=== PATIENT | male | born 1950 | race Caucasian/White ===

== ENCOUNTER → 2016-10-07 | Day surgery (SDC) | payer OTHER ==
[2016-09-20 07:49] VITALS: Ht 182.9 cm; Wt 81.8 kg
[~2016-10-07] VITALS: Ht 182.9 cm; Wt 81.8 kg
[~2016-10-07] MED LIST: GARL1CAP6 PO; LIDOCAINE HCL 2% 2 ML VIAL (20MG/ML) ONE; MIDAZOLAM HCL 1 MG/ML 2ML VIAL ONE; MULT-1008 PO; MULT-506 PO; ONDANSETRON INJ 2 MG/ML 2 ML VIAL ONE; PHENYLEPHRINE 100MCG/ML 5ML SYR ONE; PROPOFOL IV EMULSION 10 MG/ML 20 ML VIAL IV ONE; SODIUM CHLORIDE 0.9% 500ML 500 ML IV ONE
--- NOTE | 2016-10-07 13:03 | Endo History and Physical ---
History & Physical Date of Service: Oct 07, 2016. Chief Complaint: SCREENING Referring Physician: DR QUIROS History of Present Illness 66 yo CM who presents for screening colonoscopy. Past Surgical History Hx Cardiac Surgery: No Hx Internal Defibrillator: No Hx Pacemaker: No Hx Abdominal Surgery: Yes (APPY) Hx of Implantable Prosthesis: No Hx Post-Op Nausea and Vomiting: No Hx Cancer Surgery: Yes (PROSTATECTOMY) Hx Thoracic Surgery: No Hx Orthopedic: Yes (LT TKA, LT ACHILLES TENDON REPAIR, MULTIPLE LT KNEE SURGERIES, DISCECTOMY) Hx Urinary Tract Surgery: No Family History Esophogeal CA Social History Smoking Status: Never Smoker Hx Substance Use: No Hx Alcohol Use: Yes (OCCASIONAL) Allergies Coded Allergies: No Known Allergies (Verified , 10/07/16) Current Medications Reported Home Medications Medications Dose Route/Sig Max Daily Dose Days Date Category Macuvite Eye Care (Multiple Vitamins W/ Minerals) 1 Tab Tab 1 Tab PO DAILY 09/20/16 Reported Garlic 10 Mg Cap 1 Tab PO DAILY 09/20/16 Reported Multivitamin (Multivitamins) Tab 1 Tab PO DAILY 05/31/13 Reported Vital Signs Weight (Kilograms): 81.82 Height (Feet): 6 Height (Inches): 0 Date Time Temp Pulse Resp B/P Pulse Ox O2 Delivery O2 Flow Rate FiO2 10/07/16 12:29 36.5 66 20 136/79 97 Room Air Physical Exam General Appearance: WD/WN, no apparent distress Respiratory/Chest: Auscultation: breath sounds normal Cardiovascular: Heart Auscultation: RRR Abdomen: Bowel Sounds: normal Inspection & Palpation: soft, non-distended, no tenderness, guarding & rebound Assessment and Plan Assessment: 66 yo CM who presents for screening colonoscopy. Plan: Proceed with colonoscopy.
--- NOTE | 2016-10-07 13:25 | Discharge Instructions ---
Endoscopy Patient Instructions Date / Procedure(s) Performed Oct 07, 2016. Colonoscopy Allergy Information Coded Allergies: No Known Allergies (Verified , 10/07/16) Discharge Date / Findings Oct 07, 2016. Rectal polyp Internal hemorrhoids Medication Instructions OK to resume all medications today as prescribed Reported Home Medications Medications Dose Route/Sig Max Daily Dose Days Date Category Macuvite Eye Care (Multiple Vitamins W/ Minerals) 1 Tab Tab 1 Tab PO DAILY 09/20/16 Reported Garlic 10 Mg Cap 1 Tab PO DAILY 09/20/16 Reported Multivitamin (Multivitamins) Tab 1 Tab PO DAILY 05/31/13 Reported Provider Instructions Activity Restrictions - No exercising or heavy lifting for 24 hours. - Do not drink alcohol the day of the procedure. - Do not drive a car or operate machinery until the day after the procedure. - Do not make any important decisions or sign important papers in 24 hours after the procedure. Following Day: - Return to full activity which may include returning to work/school. Diet Start your diet with liquids and light foods (jello, soup, juice, toast). Then eat your usual diet if not nauseated. Treatment For Common After Affects For mild abdominal pain, bloating, or excessive gas: - Rest - Eat lightly - Lie on right side Follow-Up Information Follow-up with DR QUIROS as scheduled Anesthesia Information What You Should Know You have had a procedure that required some medicine to reduce anxiety and discomfort. This treatment is called moderate sedation. After receiving the treatment, you may be sleepy, but you will be able to breathe on your own. The effects of the treatment may last for several hours. Follow these instructions along with Activity/Diet recommendations noted above: * Do NOT do anything where dizziness or clumsiness would be dangerous. * Rest quietly at home today, then you can be up and about tomorrow. * Have a responsible person stay with you the rest of today. * You may have had an I.V. today. If so, you may take the dressing off later today. Recommendations Call your doctor if: * Trouble breathing * Continuous vomiting for more than 24 hours * Temperature above 101 degrees * Severe abdominal pain or bloating * Pain not relieved by pain medicine ordered * There is increased drainage or redness from any incision * A large amount of rectal bleeding greater than 2-3 tablespoons. (If you had a polyp/s removed or have hemorrhoids, a small amount of blood - from the rectum is to be expected.) * You have any unanswered questions or concerns. IN THE EVENT OF A SERIOUS EMERGENCY, GO TO THE NEAREST EMERGENCY ROOM Your discharge instructions were prepared by provider Dwayne Gomes. Patient Instructions Signature Page Joesph Blackwood Patient (or Guardian) Signature/Date: I have read and understand the instructions given to me by my caregivers. Caregiver/RN/Doctor Signature/Date: The above-named patient and/or guardian has received patient instructions on this date. + Original Patient Signature Page (only) stays with chart. Please make copy for patient.
--- NOTE | 2016-10-07 13:32 | GI REPORT ---
Procedure Date: 10/07/2016 12:54 PM Procedure: Colonoscopy Indications: Screening for colorectal malignant neoplasm Medicines: Monitored Anesthesia Care Complications: No immediate complications. Estimated Blood Loss: Estimated blood loss: none. Procedure: Pre-Anesthesia Assessment: - Prior to the procedure, a History and Physical was performed, and patient medications and allergies were reviewed. The patient's tolerance of previous anesthesia was also reviewed. The risks and benefits of the procedure and the sedation options and risks were discussed with the patient. All questions were answered, and informed consent was obtained. Prior Anticoagulants: The patient has taken no previous anticoagulant or antiplatelet agents. ASA Grade Assessment: II - A patient with mild systemic disease. After reviewing the risks and benefits, the patient was deemed in satisfactory condition to undergo the procedure. After I obtained informed consent, the scope was passed under direct vision. Throughout the procedure, the patient's blood pressure, pulse, and oxygen saturations were monitored continuously. The scope was introduced through the anus and advanced to the terminal ileum. The colonoscopy was performed without difficulty. The patient tolerated the procedure well. The quality of the bowel preparation was good. The terminal ileum, ileocecal valve, appendiceal orifice, and rectum were photographed. Findings: A 7 mm polyp was found in the rectum. The polyp was flat. The polyp was removed with a hot snare. Resection and retrieval were complete. Non-bleeding internal hemorrhoids were found during retroflexion. The hemorrhoids were small. Impression: - One 7 mm polyp in the rectum, removed with a hot snare. Resected and retrieved. - Non-bleeding internal hemorrhoids. Recommendation: - Resume previous diet. - Continue present medications. - Repeat colonoscopy for surveillance based on pathology results. - Return to primary care physician as previously scheduled. Dwayne Gomes DO 10/07/2016 1:31:49 PM This report has been signed electronically. Note Initiated On: 10/07/2016 12:54 PM
--- NOTE | 2016-10-07 13:33 | Anesthesiology Progress Note ---
Anesthesia Post Op Note Date & Time Oct 07, 2016 at 13:33 Vital Signs Pain Intensity: 0 Vital Signs Past 12 Hours Date Time Temp Pulse Resp B/P Pulse Ox O2 Delivery O2 Flow Rate FiO2 10/07/16 12:29 36.5 66 20 136/79 97 Room Air Notes Mental Status: alert / awake / arousable, participated in evaluation Pt Amnestic to Procedure: Yes Nausea / Vomiting: adequately controlled Pain: adequately controlled Airway Patency, RR, SpO2: stable & adequate BP & HR: stable & adequate Hydration State: stable & adequate Anesthetic Complications: no major complications apparent
[2016-10-07 14:00] VITALS: BP 111/71; PULSE 64; O2SAT 95
== END | disposition home or self-care (01) ==
LOC: C.GI 12:04
PROVIDERS: ATTEND Internal Medicine
DX: Z12.11 Encounter for screening for malignant neoplasm of colon (principal); K62.1 Rectal polyp; K64.8 Other hemorrhoids; Z98.890 Other specified postprocedural states; Z96.652 Presence of left artificial knee joint; Z80.0 Family history of malignant neoplasm of digestive organs

== ENCOUNTER 2020-08-25 06:41 | Observation (INO) ==
--- NOTE | 2020-08-25 07:26 | Emergency Department Note ---
History of Present Illness General Chief complaint: Illness Stated complaint: COVID,PNEUMONIA Time Seen by Provider: 08/25/20 07:07 History of Present Illness Maximum Pain Intensity: 4 This is a 69-year-old male presenting to the emergency department for evaluation of continued illness and worsening weakness over the past few days. The patient did test positive for COVID-19 08/21/2020, 4 days ago. The patient was in the ER that day and had blood work and chest x-ray performed. X-ray did show small right lower lobe pneumonia. At his previous visit the patient was on day 3 of Zithromax that was prescribed by his PCP. He did complete the Zithromax and did not feel any better. He followed up with his primary care physician the next day, and was started on doxycycline and clarithromycin. The patient was also given ivermectin. The patient has had a persistent cough at home. He is taking Tylenol for intermittent fever. The patient is fatigued and feels worse than he did a few days ago. He rates his overall discomfort a 4/10. Home Medications Medication Instructions Recorded Confirmed Type multivitamin 1 tab PO QAM #0 tab 05/31/13 08/25/20 History ascorbic acid (vitamin C) [Vitamin 500 mg PO QAM 08/21/20 08/25/20 History C] atorvastatin 10 mg PO HS 08/21/20 08/25/20 History cholecalciferol (vitamin D3) 25 mcg PO QAM 08/21/20 08/25/20 History [Vitamin D3] zinc sulfate 220 mg PO QAM 08/21/20 08/25/20 History acetaminophen [Tylenol] 0 mg PO QID PRN 08/25/20 08/25/20 History doxycycline monohydrate 100 mg PO BID 08/25/20 08/25/20 History ivermectin 21 mg PO UD 08/25/20 08/25/20 History Allergies Allergy/AdvReac Type Severity Reaction Status Date / Time No Known Allergies Allergy Verified 08/21/20 15:03 Past Med/Surg History Medical History (Updated 08/25/20 @ 09:24 by Joesph Lemons PA-C) COVID-19 Positive test 08/21/2020 Surgical History (Updated 08/25/20 @ 07:25 by Joesph Lemons PA-C) No significant past surgical history Social History Smoking Status: Never smoker Second Hand Exposure: No; Do You Dip or Chew Tobacco: No; Tobacco Cessation Education Requested by Patient: No Hx Alcohol Use: No Hx Substance Use: No Preferred Language: Iranian Communication Ability: Effective Software 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: No Beliefs That Will Affect Care: None Current Living Situation: Spouse Other Information That Helps Us Care for You: No Feels Safe at Home: Yes Safety Concerns: Feels Safe At This Time Assistive Devices: None Review of Systems A total of 10 systems reviewed and were otherwise negative Physical Exam Vital Signs Vital Signs - 24 hr 08/25/20 06:56 08/25/20 07:00 08/25/20 07:30 Temperature 36.5 C Temperature Source Oral Pulse Rate 66 70 78 Pulse Rate from SpO2 Sensor 69 75 Respiratory Rate 24 14 18 Respiratory Effort / Characteristics Non-Labored Respiratory Depth Normal Blood Pressure 116/75 107/72 109/74 Blood Pressure Mean 88 82 82 Pulse Oximetry 95 92 94 Oxygen Delivery Method Room Air Sepsis Recent Fever Within 48 Hours No Sepsis New/Unexplained Change in Mental Status No Sepsis Action Taken by Nursing No Action Required 08/25/20 08:00 08/25/20 08:04 08/25/20 08:30 Temperature Temperature Source Pulse Rate 58 L Pulse Rate from SpO2 Sensor 66 59 L Respiratory Rate 16 14 Respiratory Effort / Characteristics Respiratory Depth Blood Pressure 107/69 111/64 Blood Pressure Mean 74 71 Pulse Oximetry 94 94 93 Oxygen Delivery Method Room Air Sepsis Recent Fever Within 48 Hours Sepsis New/Unexplained Change in Mental Status Sepsis Action Taken by Nursing 08/25/20 09:00 08/25/20 09:30 08/25/20 10:00 Temperature Temperature Source Pulse Rate 70 58 L 58 L Pulse Rate from SpO2 Sensor 68 58 L 58 L Respiratory Rate 17 17 20 Respiratory Effort / Characteristics Respiratory Depth Blood Pressure 108/72 118/75 109/72 Blood Pressure Mean 91 86 76 Pulse Oximetry 95 95 95 Oxygen Delivery Method Sepsis Recent Fever Within 48 Hours Sepsis New/Unexplained Change in Mental Status Sepsis Action Taken by Nursing VITALS: Vitals are noted on the nurse's note and reviewed by myself. Vital signs stable. GENERAL: Well-developed, well-nourished, white male who appears fatigued but not toxic. HEAD: Normocephalic atraumatic. HEART: Regular rate and rhythm without murmurs gallops or rubs. LUNGS: Generally clear with scattered wheezing in the right lower lobe ABDOMEN: Positive normal bowel sounds x 4. Soft, nontender, without masses or organomegaly. No guarding or rebound tenderness. MUSCULOSKELETAL: No muscle atrophy, erythema, or edema noted. Full range of motion in all extremities. NEURO: Patient was alert and oriented to person place and time. CN II through XII grossly intact. Course Administered Medications Sodium Chloride (Nss 1000ml) 1,000 mls @ 125 mls/hr IV .Q8H SAMEER Stop: 08/26/20 03:45 Last Admin: 08/25/20 12:32 Dose: 125 mls/hr Documented by: [id number] Medical Decision Making Differential Diagnosis Differential diagnosis: Etiologies such as viral syndrome, otitis, pharyngitis, pneumonia, influenza, meningitis, urinary tract infection, septic arthritis, soft tissue infectious process, intra-abdominal process, sepsis, bacteremia, as well as others were entertained. Laboratory Data Result diagrams: 08/25/20 08:13 08/25/20 08:13 Lab Results 08/25/20 08/25/20 Range/Units 08:13 08:13 WBC 5.92 (4.8-10.8) K/uL RBC 5.09 (4.7-6.1) M/uL Hgb 16.0 (14.0-18.0) g/dL Hct 47.0 (42-52) % MCV 92.3 (80-100) fL MCH 31.4 (25-34) pg MCHC 34.0 (32-36) g/dL RDW Std Deviation 43.9 (36.4-46.3) fL RDW Coeff of Caitlyn 12.9 (11.5-14.5) % Plt Count 195 (130-400) K/uL MPV 9.5 (7.4-10.4) fL Immature Gran % (Auto) 0.2 % Neut % (Auto) 81.3 % Lymph % (Auto) 11.5 % [place] % (Auto) 6.6 % Eos % (Auto) 0.2 % Baso % (Auto) 0.2 % Neut # (Auto) 4.82 (1.4-6.5) K/uL Lymph # (Auto) 0.68 L (1.2-3.4) K/uL [place] # (Auto) 0.39 (0.11-0.59) K/uL Eos # (Auto) 0.01 (0-0.5) K/uL Baso # (Auto) 0.01 (0-0.2) K/uL Immature Gran # (Auto) 0.01 (0.00-0.02) K/uL Sodium 135 L (136-145) mmol/L Potassium 4.8 (3.5-5.1) mmol/L Chloride 103 (98-107) mmol/L Carbon Dioxide 29 (21-32) mmol/L Anion Gap 3.0 (3-11) BUN 21 H (7-18) mg/dl Creatinine 1.50 H (0.6-1.4) mg/dl Est Cr Clr Drug Dosing 52.3 ml/min Est GFR ( Amer) 53.5 Est GFR (Non-Af Amer) 46.2 BUN/Creatinine Ratio 14.1 (10-20) Glucose 100 H (70-99) mg/dl Calcium 8.9 (8.5-10.1) mg/dl Total Bilirubin 0.8 (0.2-1) mg/dl AST 44 H (15-37) U/L ALT 26 (12-78) U/L Alkaline Phosphatase 91 (45-117) U/L Total Protein 6.8 (6.4-8.2) gm/dl Albumin 2.9 L (3.4-5.0) gm/dl Globulin 3.9 (2.5-4.0) gm/dl Albumin/Globulin Ratio 0.7 L (0.9-2) Imaging Data Radiologist's Impression: XR chest 1V portable CLINICAL HISTORY: Cough. +COVID. Recent pneumonia COMPARISON STUDY: Chest radiograph August 21, 2020. FINDINGS: Multifocal bilateral airspace opacities have increased since exam August 21, 2020. There is mild cardiomegaly without evidence for pulmonary edema. There is no pneumothorax or pleural effusion. IMPRESSION: Increase in multifocal bilateral airspace opacities suggestive of an infectious process. ECG Data Attestation: I personally reviewed and interpreted this ECG as follows: Indication: + SOB/dyspnea Additional Comments: Normal sinus rhythm @66bpm Incomplete right bundle branch block Nonspecific ST abnormality When compared with ECG of 21-AUG-2020 13:36, No significant change was found MDM Narrative Physical exam and history were performed. Nursing notes, EMR, and Medication List were personally reviewed. Patient appears to have positive COVID-19 history. The patient does have pneumonia that was identified on previous imaging. He states he is feeling worse today than he has during this whole illness. IV access was established and labs were obtained. He was gently hydrated with normal saline. Chest x-ray was performed. The patient's blood work is as above and was reviewed. He does not have a significantly elevated white blood cell count, gross anemia, bandemia, or significant electrolyte imbalance. Transaminases are not diagnostic. X-ray was reviewed by myself and radiology. The x-ray does appear to be with worsening findings compared to his x-ray a few days ago. He seems to have a multifocal pneumonia. The case was discussed with my attending physician, Dr. Calloway. Overall the patient does not feel well for discharge home. He seems to have a worsening multifocal pneumonia as well as a known history of COVID-19. I did discuss the case with the on-call hospitalist team, who agreed to evaluate the patient here in the ER. Please see their dictation for further patient course, plan, and disposition. The chart was completed utilizing [employer] Speech Voice Recognition Software. Grammatical errors, random word insertions, pronoun errors, and incomplete sentences are an occasional consequence of this system due to software limitations, ambient noise, and hardware issues. Any formal questions or concerns about the content, text, or information contained within the body of this dictation should be directly addressed to the provider for clarification. . Impression & Plan Multifocal pneumonia, COVID-19, Fatigue, SOB (shortness of breath) Discharge Plan Visit Data Chief Complaint: Illness Stated Complaint: COVID,PNEUMONIA ED Provider: Shane Calloway ED Midlevel Provider: Joesph Lemons Discharge Problem: Multifocal pneumonia, COVID-19, Fatigue, SOB (shortness of breath) Patient Disposition: Admitted As Inpatient Discharge Instructions Interventions: ED Discharge Assessment Last Done: 08/25/20 11:42 Discharge Problem: Fatigue Qualifiers: Fatigue type: unspecified Qualified Code(s): R53.83 - Other fatigue
--- NOTE | 2020-08-25 08:10 | XRay Report ---
XR chest 1V portable CLINICAL HISTORY: Cough. +COVID. Recent pneumonia COMPARISON STUDY: Chest radiograph August 21, 2020. FINDINGS: Multifocal bilateral airspace opacities have increased since exam August 21, 2020. There is mild cardiomegaly without evidence for pulmonary edema. There is no pneumothorax or pleural effusi on. IMPRESSION: Increase in multifocal bilateral airspace opacities suggestive of an infectious process. ACT 112: Negative or not required by law. Electronically signed by: Boni Oliveira M.D. 08/25/2020 8:09 AM
[2020-08-25 08:32] LABS: Basophils # (auto) 0.01 K/uL (0-0.2); Basophils % (auto) 0.2 %; Eosinophils # (auto) 0.01 K/uL (0-0.5); Eosinophils % (auto) 0.2 %; Immature Granulocytes # (auto) 0.01 K/uL (0.00-0.02); Immature Granulocytes % (auto) 0.2 %; Lymphocytes # (auto) 0.68 K/uL (1.2-3.4); Lymphocytes % (auto) 11.5 %; Mean Corpuscular Hemoglobin 31.4 pg (25-34); Mean Corpuscular Volume 92.3 fL (80-100); Mean Platelet Volume 9.5 fL (7.4-10.4); Monocytes # (auto) 0.39 K/uL (0.11-0.59); Monocytes % (auto) 6.6 %; Neutrophils # (auto) 4.82 K/uL (1.4-6.5); Neutrophils % (auto) 81.3 %; Platelet Count 195 K/uL (130-400); RDW Coefficient of Variation 12.9 % (11.5-14.5); RDW Standard Deviation 43.9 fL (36.4-46.3); Red Blood Count 5.09 M/uL (4.7-6.1); White Blood Count 5.92 K/uL (4.8-10.8)
[2020-08-25 08:49] LABS: Albumin Level 2.9 gm/dl (3.4-5.0); BUN Creatinine Ratio 14.1 (10-20); Calcium 8.9 mg/dl (8.5-10.1); Creatinine Clr Calc Pharmacy 52.3 ml/min; Est GFR (African American) 53.5; Est GFR (Non-African American) 46.2; Potassium 4.8 mmol/L (3.5-5.1)
[2020-08-25 08:51] LABS: Albumin Globulin Ratio 0.7 (0.9-2); Bilirubin,Total 0.8 mg/dl (0.2-1); Globulin 3.9 gm/dl (2.5-4.0); Total Protein 6.8 gm/dl (6.4-8.2)
--- NOTE | 2020-08-25 11:04 | History & Physical Report ---
Date of Service August 25, 2020 Assessment & Plan (1) COVID-19: symptoms started about 10 days ago short of breath, saturations borderline with one reading of 93% on room air at rest likely desaturating on exertion as he gets more dyspneic will give Decadron 6mg IV daily starting today does not meet criteria for Remdesivir or convalescent plasma no signs of bacterial pneumonia, already completed Zithromax as outpatient provide fluids, NSS at 125cc/hr Codeine 10mL q6 PRN for cough as this is keeping him up most of the night observation status, anticipate him feeling better tomorrow and going home (2) Multifocal pneumonia: slightly progressed on CXR but not severe supportive care, give Dexamethasone (3) Fatigue: due to coughing all night, poor sleep give Codeine PRN (4) Dehydration: NSS at 125cc/hr x 2 bags and reassess tomorrow History of Present Illness Chief Complaint: I feel terrible, I can't get out of bed Primary Care Provider: Cuate Rosen MD 69 yo male with no medical problems presents to the ED for 10 days of COVID symptoms. He said that he started with severe headache about 10 days ago then lost his sense of smell and taste and was tested one day later. He had a severe cough and some dyspnea on exertion and fevers. He then experienced diarrhea for several days with poor appetite, poor oral intake of both liquids and food. He came to the ED on 08/21 and was given IV fluids and was found to have some evidence of pneumonia on CXR. He was treated with Zithromax which had actually been started by his PCP two days earlier. He was sent home from the ED after receiving the fluids as he was not requiring oxygen. He has continued to get worse over the past several days, to the point that he could barely stand out of bed today. He is still not eating or drinking well and feels more short of breath. In the ED he was afebrile, saturations were 93-95% on room air, no distress. CXR with bilateral infiltrates that are progressing. He does not feel he can manage this at home, asked to admit patient. Allergies Allergy/AdvReac Type Severity Reaction Status Date / Time No Known Allergies Allergy Verified 08/21/20 15:03 Home Medications Medication Instructions Recorded Confirmed Type multivitamin 1 tab PO QAM #0 tab 05/31/13 08/25/20 History ascorbic acid (vitamin C) [Vitamin 500 mg PO QAM 08/21/20 08/25/20 History C] atorvastatin 10 mg PO HS 08/21/20 08/25/20 History cholecalciferol (vitamin D3) 25 mcg PO QAM 08/21/20 08/25/20 History [Vitamin D3] zinc sulfate 220 mg PO QAM 08/21/20 08/25/20 History acetaminophen [Tylenol] 0 mg PO QID PRN 08/25/20 08/25/20 History doxycycline monohydrate 100 mg PO BID 08/25/20 08/25/20 History ivermectin 21 mg PO UD 08/25/20 08/25/20 History Past Med/Surg History Medical History COVID-19 Positive test 08/21/2020 Surgical History No significant past surgical history Family History Father Cancer Social History Smoking Status: Never smoker Second Hand Exposure: No; Do You Dip or Chew Tobacco: No; Tobacco Cessation Education Requested by Patient: No Hx Alcohol Use: No Hx Substance Use: No Preferred Language: Guinean Communication Ability: Effective 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 Beliefs That Will Affect Care: None Current Living Situation: Spouse Other Information That Helps Us Care for You: No Feels Safe at Home: Yes Safety Concerns: Feels Safe At This Time Assistive Devices: None Review of Systems Review of Systems: All systems reviewed & are unremarkable except as noted in HPI & below Physical Exam Constitutional: well developed and + ill appearing; no acute distress and + not appropriately hydrated Eyes: PERRL, conjunctivae normal, anicteric sclerae ENMT: external ear and nose normal, oropharynx normal (with the exception of dry mucous membranes) Neck: trachea midline, no thyromegaly Respiratory: normal respiratory effort, lungs clear to auscultation Cardiovascular: RRR, no murmur, no edema Gastrointestinal (Abdomen): normal bowel sounds, soft, nontender, no hepatosplenomegaly Musculoskeletal: no cyanosis or clubbing, extremities motor strength 5/5 Skin: no rashes, warm and dry Neurologic: patellar DTR's 2+ bilat, sensation intact and PERRL, EOMI, accommodation nl, no face palsy, no dysarthria Psychiatric: A+Ox3, euthymic affect Lymphatic: no cervical or axillary lymphadenopathy Results & Data Results & Data ([facility]) Vital Signs (Past 12 Hours) Vital Signs Temp Pulse Resp BP Pulse Ox 08/25/20 08:04 94 08/25/20 06:56 36.5 C 66 24 116/75 95 Laboratory Results Laboratory Results - last 24 hr 08/25/20 08/25/20 08:13 08:13 WBC 5.92 RBC 5.09 Hgb 16.0 Hct 47.0 MCV 92.3 MCH 31.4 MCHC 34.0 RDW Std Deviation 43.9 RDW Coeff of Caitlyn 12.9 Plt Count 195 MPV 9.5 Immature Gran % (Auto) 0.2 Neut % (Auto) 81.3 Lymph % (Auto) 11.5 Forest % (Auto) 6.6 Eos % (Auto) 0.2 Baso % (Auto) 0.2 Neut # (Auto) 4.82 Lymph # (Auto) 0.68 L Forest # (Auto) 0.39 Eos # (Auto) 0.01 Baso # (Auto) 0.01 Immature Gran # (Auto) 0.01 Sodium 135 L Potassium 4.8 Chloride 103 Carbon Dioxide 29 Anion Gap 3.0 BUN 21 H Creatinine 1.50 H Est Cr Clr Drug Dosing 52.3 Est GFR ( Amer) 53.5 Est GFR (Non-Af Amer) 46.2 BUN/Creatinine Ratio 14.1 Glucose 100 H Calcium 8.9 Total Bilirubin 0.8 AST 44 H ALT 26 Alkaline Phosphatase 91 Total Protein 6.8 Albumin 2.9 L Globulin 3.9 Albumin/Globulin Ratio 0.7 L Diagnostic Findings XR chest 1V portable CLINICAL HISTORY: Cough. +COVID. Recent pneumonia COMPARISON STUDY: Chest radiograph August 21, 2020. FINDINGS: Multifocal bilateral airspace opacities have increased since exam August 21, 2020. There is mild cardiomegaly without evidence for pulmonary edema. There is no pneumothorax or pleural effusion. IMPRESSION: Increase in multifocal bilateral airspace opacities suggestive of an infectious process. Code Status & VTE Plan VTE Prophylaxis Plan VTE Prophylaxis will be ordered: Yes PG Care Time/CCT Total # of Minutes Spent Total Time Spent with Patient: Total time spent is greater than 50% in coordination of care (as documented) at patient's floor/unit and/or counseling patient: Coding Level of Care Code 41879 OBS Care - Level 3 Diagnoses COVID-19 U07.1 Multifocal pneumonia J18.9 Fatigue R53.83 Fatigue type: unspecified Dehydration E86.0 (1) Fatigue Fatigue type: unspecified Qualified Code(s): R53.83 - Other fatigue
[2020-08-25] MEDS ORDERED: ONDANSETRON INJ 2 MG/ML 2 ML VIAL IV PRN (11:46)
[2020-08-25] MEDS ORDERED: ACETAMINOPHEN 325 MG TAB PO PRN (11:46)
[2020-08-25] MEDS ORDERED: IVERMECTIN 3 MG TABLET PO SCH (11:46)
[2020-08-25] MEDS ORDERED: INFLUENZA ADMINISTRATION CHARGE ONE (12:01)
[2020-08-25] MEDS ORDERED: INFLUENZA VIRUS QUAD VACCINE 0.5 ML SYR IM ONE (12:01)
[2020-08-25] MEDS: SODIUM CHLORIDE 0.9% 1000ML 1,000 ML IV SCH ×2 (12:32→21:22)
[2020-08-25] MEDS: dexAMETHasone 6 MG in SYRINGE 0 ML IV SCH (13:51)
[2020-08-25] MEDS ORDERED: COUGH DROP (SUGAR FREE) LOZ 24 LOZ/1 BOX BUCCAL STA (18:29)
[2020-08-25] MEDS ORDERED: HYDROcodone/HOMATROPINE SYRUP 5MG/1.5MG 5ML UDP PO PRN ×2 (19:19→19:41)
--- NOTE | 2020-08-25 19:33 | Communication Note ---
Date of Service: August 25, 2020 Family member at bedside, unhappy with care. States that pt was promised something for his cough and did not receive it, and that his saline pump has been off for the last hour and a half. They are also questioning whether he should be on his home doxycycline. Explained to his family member and called his and advised that I had just ordered the Hycodan syrup, and that nursing will work on getting the pump up and running again. Also advised that his pneumonia at this point was likely viral and did not require antibiotic treatment. Please consider f/u with family and in the AM. 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
[2020-08-25] MEDS ORDERED: ATORVASTATIN 10 MG TAB PO SCH (21:00)
[2020-08-25] MEDS ORDERED: ENOXAPARIN INJ 40 MG/0.4 ML SYR SQ SCH (21:00)
--- NOTE | 2020-08-26 05:56 | Electrocardiogram Report ---
Test Reason : Blood Pressure : / mmHG Vent. Rate : 066 BPM Atrial Rate : 066 BPM P-R Int : 206 ms QRS Dur : 092 ms QT Int : 416 ms P-R-T Axes : 041 086 010 degrees QTc Int : 436 ms Normal sinus rhythm Incomplete right bundle branch block Abnormal ECG When compared with ECG of 21-AUG-2020 13:36, No significant change was found Confirmed by Tee Douglas ([id number]) on 08/26/2020 5:56:03 AM Referred By: REFERRED SELF Confirmed By:Tee Douglas
[2020-08-26] MEDS: dexAMETHasone 6 MG in SYRINGE 0 ML IV SCH (08:06)
[2020-08-26 08:28] LABS: D Dimer 640 ug/L FEU (0-500)
[2020-08-26 08:32] LABS: BUN Creatinine Ratio 20.7 (10-20); Calcium 8.1 mg/dl (8.5-10.1); Creatinine Clr Calc Pharmacy 79.3 ml/min; Est GFR (African American) 88.4; Est GFR (Non-African American) 76.3; Potassium 4.1 mmol/L (3.5-5.1)
[2020-08-26] MEDS ORDERED: ASCORBIC ACID 500 MG TAB PO SCH (09:00)
[2020-08-26] MEDS ORDERED: ZINC SULFATE 220 MG CAPSULE PO SCH (09:00)
[2020-08-26] MEDS ORDERED: CHOLECALCIFEROL 1,000 UNITS 25 MCG TAB PO SCH (09:00)
[2020-08-26 09:01] LABS: Ferritin 768.5 ng/ml (8-388)
--- NOTE | 2020-08-26 11:52 | Discharge Summary ---
Date of Service August 26, 2020 Admission HPI Per Admitting Provider 69 yo male with no medical problems presents to the ED for 10 days of COVID symptoms. He said that he started with severe headache about 10 days ago then lost his sense of smell and taste and was tested one day later. He had a severe cough and some dyspnea on exertion and fevers. He then experienced diarrhea for several days with poor appetite, poor oral intake of both liquids and food. He came to the ED on 08/21 and was given IV fluids and was found to have some evidence of pneumonia on CXR. He was treated with Zithromax which had actually been started by his PCP two days earlier. He was sent home from the ED after receiving the fluids as he was not requiring oxygen. He has continued to get worse over the past several days, to the point that he could barely stand out of bed today. He is still not eating or drinking well and feels more short of breath. In the ED he was afebrile, saturations were 93-95% on room air, no distress. CXR with bilateral infiltrates that are progressing. He does not feel he can manage this at home, asked to admit patient. Principal Diagnosis COVID 19 pneumonia Discharge Exam Constitutional well developed and + ill appearing; no acute distress and + not appropriately hydrated Eyes PERRL, conjunctivae normal, anicteric sclerae ENMT external ear and nose normal, oropharynx normal (with the exception of dry mucous membranes) Neck trachea midline, no thyromegaly Respiratory normal respiratory effort, lungs clear to auscultation Cardiovascular RRR, no murmur, no edema Gastrointestinal (Abdomen) normal bowel sounds, soft, nontender, no hepatosplenomegaly Musculoskeletal no cyanosis or clubbing, extremities motor strength 5/5 Skin no rashes, warm and dry Neurologic patellar DTR's 2+ bilat, sensation intact and PERRL, EOMI, accommodation nl, no face palsy, no dysarthria Psychiatric A+Ox3, euthymic affect Lymphatic no cervical or axillary lymphadenopathy Discharge Data Allergies Allergy/AdvReac Type Severity Reaction Status Date / Time No Known Allergies Allergy Verified 08/21/20 15:03 Consultations 08/25/20 10:16 ED Decision to Admit Stat Hospital Course (1) COVID-19: symptoms started about 10 days prior to admission short of breath, saturations borderline with one reading of 93% on room air at rest likely desaturating on exertion as he gets more dyspneic great clinical response to Decadron, more energy, easier breathing, less cough will discharge home on brief course of Decadron use Codeine 10mL q6 PRN for cough as this helps him rest does not meet criteria for Remdesivir or convalescent plasma no signs of bacterial pneumonia, already completed Zithromax as outpatient, stop further Doxycycline provided fluids, NSS at 125cc/hr as he appeared dehydrated on admission feeling much, much better after 2 liters of fluid administered encourage him to drink 1.5 liters of fluids a day (2) Multifocal pneumonia: slightly progressed on CXR but not severe supportive care, give Dexamethasone great clinical response, still not needing oxygen (3) Dehydration: NSS at 125cc/hr x 2 bags Total Time Total Time Spent Total Time Spent (In Minutes): 28 minutes Total Time Includes: Examination of the Patient, Discharge Planning and Medication Reconciliation Discharge Plan Discharge Items Patient Disposition: Home - Self-Care Reason For Visit: COVID 19,PNEUMONIA Discharge Diagnosis: COVID 19 pneumonia Condition on Discharge: Good Activity: Resume your previous activity Driving/Machine Use: No limitations Weightbearing: Full weightbearing Non-emergency contact: Primary Care Provider Call non-emergency contact if: you have any medication questions, your symptoms worsen and you have a fever Follow-up/Referrals: Cuate Rosen MD [Primary Care Provider] - 09/02/20 10:00 am (one week) Diet: Regular Addtl Attending Provider Instructions: Medications: - DEXAMETHASONE: 6mg daily for 5 more days, you received a dose this morning so start this tomorrow morning - CODEINE: 10mL every 6 hours as needed for cough to help you rest COVID 19 pneumonia, no hypoxemia, dehydration rapid improvement in your condition with IV fluids and dexamethasone you had evidence of dehydration, your Cr was up at 1.5, it is down to 0.9 today after two liters of fluid it is important that you try to drink at least 1.5 liters of fluid a day, combination of water and fluids with electrolytes (Gatorade, Vitamin water etc) maintain adequate nutrition, get rest continue the Dexamethasone for 5 more days follow up with Dr. Rosen next week recommend that you remain in quarantine through the weekend per CDC guidelines Pending Studies at Discharge: No Stand-Alone Forms: My [facility], Smoking Cessation Medications and DC Order Prescriptions: New dexamethasone 2 mg tablet 6 mg PO DAILY 5 Days Qty: 15 RF: 0 codeine-guaifenesin 10-100 mg/5 mL liquid 10 ml PO Q6H PRN (Reason: cough) Qty: 240 RF: 0 Continued multivitamin Tablet 1 tab PO QAM Qty: 0 RF: 0 atorvastatin 10 mg tablet 10 mg PO HS RF: 0 zinc sulfate 220 mg Tablet 220 mg PO QAM RF: 0 ascorbic acid (vitamin C) [Vitamin C] 500 mg Tablet 500 mg PO QAM RF: 0 cholecalciferol (vitamin D3) [Vitamin D3] 25 mcg (1,000 unit) Tablet 25 mcg PO QAM RF: 0 acetaminophen [Tylenol] 325 mg Tablet 0 mg PO QID PRN (Reason: Pain) RF: 0 Discontinued ivermectin 3 mg tablet 21 mg PO UD RF: 0 doxycycline monohydrate 100 mg capsule 100 mg PO BID RF: 0 Discharge Orders: Discharge Order (Routine); Ordered 08/26/20 Ordered By: Casey Elliott Admission Data Admit Date/Time: 08/25/20 10:09 Attending Provider: Casey Elliott Admit Provider: Casey Elliott Primary Care Provider: Cuate Rosen Other Providers: Casey Elliott Other Interventions: Discharge Summary Assessment (RN) Last Done: 08/26/20 12:18 Coding Level of Care Code 78637 OBS Care - Discharge Diagnoses COVID-19 U07.1 Multifocal pneumonia J18.9 Dehydration E86.0
== END 2020-08-26 13:14 | disposition home or self-care (01) ==
LOC: ED 06:41 → 2W 06:41

== ENCOUNTER 2020-09-09 11:08 | Observation (INO) ==
[2020-09-09] MEDS ORDERED: ALBUTEROL HFA 8 GM INHALER INH ONE (11:59)
[2020-09-09 12:22] LABS: Basophils # (auto) 0.02 K/uL (0-0.2); Basophils % (auto) 0.2 %; Hematocrit (blood only) 42.6 % (42-52); Hemoglobin 14.3 g/dL (14.0-18.0); Immature Granulocytes # (auto) 0.04 K/uL (0.00-0.02); Immature Granulocytes % (auto) 0.4 %; Lymphocytes # (auto) 0.94 K/uL (1.2-3.4); Lymphocytes % (auto) 9.9 %; Mean Corpuscular Hemoglobin 31.6 pg (25-34); Mean Corpuscular Hgb Conc 33.6 g/dL (32-36); Mean Platelet Volume 8.9 fL (7.4-10.4); Monocytes # (auto) 0.39 K/uL (0.11-0.59); Monocytes % (auto) 4.1 %; Neutrophils # (auto) 8.06 K/uL (1.4-6.5); Neutrophils % (auto) 85.4 %; Platelet Count 282 K/uL (130-400); RDW Coefficient of Variation 13.9 % (11.5-14.5); RDW Standard Deviation 47.4 fL (36.4-46.3); Red Blood Count 4.53 M/uL (4.7-6.1); White Blood Count 9.45 K/uL (4.8-10.8)
[2020-09-09 12:29] LABS: iSTAT Creatinine 1.3 mg/dl (0.6-1.3); iSTAT Hemoglobin 14.6 g/dl (14.0-18.0); iSTAT Ionized Calcium 1.15 mmol/l (1.12-1.32); iSTAT Potassium 4.7 mmol/L (3.3-5.0)
[2020-09-09 12:39] LABS: Alanine Aminotransferase 85 U/L (12-78); Albumin Level 3.2 gm/dl (3.4-5.0); Aspartate Aminotransferase 39 U/L (15-37); BUN Creatinine Ratio 26.3 (10-20); Blood Urea Nitrogen 36 mg/dl (7-18); Calcium 9.2 mg/dl (8.5-10.1); Carbon Dioxide 26 mmol/L (21-32); Chloride 107 mmol/L (98-107); Creatinine Clr Calc Pharmacy 54.7 ml/min; Est GFR (African American) 60.2; Glucose 97 mg/dl (70-99); Lipase 208 U/L (73-393); Potassium 4.7 mmol/L (3.5-5.1); Sodium 139 mmol/L (136-145)
[2020-09-09 12:42] LABS: Partial Thromboplastin Ratio 0.9; Partial Thromboplastin Time 24.1 Seconds (21.0-31.0); Prothrombin Time 10.5 Seconds (9.0-12.0)
[2020-09-09 12:44] LABS: Albumin Globulin Ratio 0.8 (0.9-2); Alkaline Phosphatase 100 U/L (45-117); Bilirubin,Total 0.8 mg/dl (0.2-1); Globulin 4.1 gm/dl (2.5-4.0); Total Protein 7.3 gm/dl (6.4-8.2); Troponin I < 0.015 ng/ml (0-0.045)
[2020-09-09] MEDS ORDERED: OPTIRAY 320 125ml IV ONE (12:53)
--- NOTE | 2020-09-09 13:12 | CT Scan Report ---
CT ANGIOGRAM OF THE CHEST CLINICAL HISTORY: Shortness of breath. Elevated d-dimer. Possible acute pulmonary embolism. Covid pos itive patient COMPARISON STUDY: Noncontrast chest CT dated 09/05/2020 TECHNIQUE: Following the IV administration of 119 mL of Optiray-320, CT angiogram of the thorax was p erformed from the thoracic inlet to the lung bases utilizing the pulmonary embolus protocol. Images a re reviewed in the axial, sagittal, and coronal planes. IV contrast was administered without complica tion. MIP imaging was performed. A dose lowering technique was utilized adhering to the principles o f ALARA. CT DOSE: 544.98 mGycm FINDINGS: There is a 4 mm left renal calculus. Mediastinal lymph nodes are the upper limits of normal in size. The ascending thoracic aorta measures 36 mm. There are right upper lobe, right lower lobe, and right middle lobe pulmonary artery filling defects indicative of acute pulmonary embolism. There is mild straightening of the intraventricular septum. M inimal right ventricular strain may be present. No pleural effusions are visualized. There are persistent multifocal groundglass pulmonary opacities consistent with a multifocal pneumoni a. IMPRESSION: 1. Right lung pulmonary artery filling defects indicative of acute pulmonary embolism 2. Persistent bilateral pulmonary airspace opacities consistent with a multifocal pneumonia 3. Left-sided nephrolithiasis ACT 112: Negative or not required by law. Electronically signed by: Paul Palmer M.D. 09/09/2020 1:10 PM
--- NOTE | 2020-09-09 13:30 | Emergency Department Note ---
History of Present Illness General Chief complaint: Shortness of Breath/Dyspnea Stated complaint: +COVID HX,SOB,PCP WORRIED ABOUT BLOOD CLOTS Time Seen by Provider: 09/09/20 11:46 Source: patient, RN notes reviewed and old records reviewed Mode of arrival: ambulatory Limitations: no limitations History of Present Illness Provider complaint: elevated ddimer, + Covid Onset (ago): week(s) 3 Current Pain Intensity: 0 Quality: + aching Relieved By: + immobilization Exacerbated By: + movement Associated symptoms: + shortness of breath Treatments prior to arrival: none This 69-year-old male who was recently diagnosed with Covid pneumonia who presents emergency department over concerns that his D-dimer is elevated. The patient was following up with his primary care physician and had a D-dimer drawn because the patient continues to be short of breath with exertion. He reports rest makes the shortness of breath better. Patient reports over the past month that today is the best he has felt and notes he was able to jog this morning. Home Medications Medication Instructions Recorded Confirmed Type multivitamin 1 tab PO QAM #0 tab 05/31/13 09/09/20 History ascorbic acid (vitamin C) [Vitamin 500 mg PO QAM 08/21/20 09/09/20 History C] atorvastatin 10 mg PO HS 08/21/20 09/09/20 History cholecalciferol (vitamin D3) 25 mcg PO QAM 08/21/20 09/09/20 History [Vitamin D3] zinc sulfate 220 mg PO QAM 08/21/20 09/09/20 History acetaminophen [Tylenol] 325 mg PO QID PRN 08/25/20 09/09/20 History lysine 1,000 mg PO QAM 09/09/20 09/09/20 History apixaban [Eliquis] 5 mg PO BID #60 tab 09/10/20 Rx Allergies Allergy/AdvReac Type Severity Reaction Status Date / Time No Known Allergies Allergy Verified 09/09/20 11:38 Past Med/Surg History Medical History COVID-19 Positive test 08/21/2020 Fatigue SOB (shortness of breath) Surgical History No significant past surgical history Family History Father Cancer Social History Smoking Status: Never smoker Second Hand Exposure: No; Hx Alcohol Use: No Hx Substance Use: No Preferred Language: Vietnamese Communication Ability: Effective Float Phlebotomist Required: No Beliefs That Will Affect Care: None Current Living Situation: Spouse Feels Safe at Home: Yes Assistive Devices: Glasses Review of Systems A total of 10 systems reviewed and were otherwise negative Physical Exam Vital Signs Vital Signs - 24 hr 09/09/20 11:12 09/09/20 11:47 09/09/20 12:05 Temperature 36.3 C L Temperature Source Oral Pulse Rate 74 74 Pulse Rate from SpO2 Sensor Pulse Rhythm Regular Respiratory Rate 19 19 Respiratory Effort / Characteristics Non-Labored Non-Labored Respiratory Depth Normal Normal Blood Pressure 134/86 Blood Pressure Mean 102 Pulse Oximetry 97 97 97 Oxygen Delivery Method Room Air Room Air Room Air Sepsis Recent Fever Within 48 Hours No Sepsis New/Unexplained Change in Mental Status No Sepsis Action Taken by Nursing No Action Required 09/09/20 12:22 09/09/20 12:30 Temperature Temperature Source Pulse Rate 70 65 Pulse Rate from SpO2 Sensor 70 66 Pulse Rhythm Respiratory Rate 19 18 Respiratory Effort / Characteristics Respiratory Depth Blood Pressure 122/78 132/78 Blood Pressure Mean 84 96 Pulse Oximetry 96 97 Oxygen Delivery Method Sepsis Recent Fever Within 48 Hours Sepsis New/Unexplained Change in Mental Status Sepsis Action Taken by Nursing VITAL SIGNS - Vital signs and nursing notes were reviewed. GENERAL - 69-year-old male appearing stated age who is in no acute distress. Communicates well with provider and answers questions appropriately. SKIN - Without rashes. HEAD - NC/AT. EYES - PERRL with EOMI bilaterally. Sclera anicteric. Palpebral conjunctiva pink and moist with no injection noted. EARS - No deformities of external structures noted on gross examination bilaterally. No pain elicited with palpation of the tragus bilaterally. External auditory canals without discharge or otorrhea. Tympanic membranes pearly grier without retraction or bulging. No fluid or purulent material visualized behind the TM. Handle of malleus, umbo, cone of light, pars tensa/flaccid all easily visualized. NOSE - Midline and without cyanosis. No epistaxis or purulent drainage noted. Septum midline without deviation or septal hematoma noted. MOUTH/OROPHARYNX - Without perioral cyanosis. Buccal mucosa pink and moist and without leukoplakia. Tongue midline with equal elevation of palate bilaterally. No tonsillar hypertrophy, erythema, or exudates noted. dentition noted. NECK - Neck with FROM. Supple to palpation. lymphadenopathy noted. No nuchal rigidity. LUNGS - Chest wall symmetric without accessory muscle use, intercostals retractions, or central cyanosis. Normal vesicular breath sounds CTA B/L. No wheezes, rales, or rhonchi appreciated. CARDIAC - RRR with S1/S2. No murmur, rubs, or gallops appreciated. ABDOMEN - Abdominal contour without pulsations or visible masses. BS normoactive all four quadrants. No tenderness, palpable masses, hepatosplenomegaly, or ascites noted. EXTREMITIES - No clubbing or peripheral cyanosis. No pretibial edema present. +3/5 radial, posterior tibial, and dorsalis pedis pulses palpated throughout. +5/5 strength noted in UE/LE bilaterally. NEUROLOGIC - Cranial nerves II through XII grossly intact. Sensory intact to light touch throughout. Patellar reflexes +2/4. PSYCH - A&Ox3 and cooperates fully with examiner. Pt is very pleasant and interacts well with examiner. Course Administered Medications Discontinued Medications Albuterol (Albuterol Hfa 8 Gm Inhaler) 2 puffs INH NOW ONE Stop: 09/09/20 12:00 Last Admin: 09/09/20 12:07 Dose: 2 puffs Documented by: [id number] Apixaban (Apixaban 5 Mg Tablet) 10 mg PO ONE [facility] Stop: 09/09/20 13:33 Last Admin: 09/09/20 14:23 Dose: 10 mg Documented by: [id number] Apixaban (Apixaban 5 Mg Tablet) 10 mg PO BID [facility] Stop: 09/16/20 20:59 Last Admin: 09/10/20 07:43 Dose: 10 mg Documented by: [id number] Admin: 09/09/20 20:32 Dose: 10 mg Documented by: [id number] Ascorbic Acid (Ascorbic Acid 500 Mg Tab) 500 mg PO QAM [facility] Stop: 10/10/20 08:59 Last Admin: 09/10/20 07:44 Dose: 500 mg Documented by: [id number] Aspirin (Aspirin 81 Mg Ectab) 81 mg PO QAM [facility] Stop: 01/08/21 08:59 Last Admin: 09/10/20 08:21 Dose: 81 mg Documented by: [id number] Atorvastatin Calcium (Atorvastatin 10 Mg Tab) 10 mg PO [facility] Stop: 10/09/20 20:59 Last Admin: 09/09/20 20:32 Dose: 10 mg Documented by: [id number] Ioversol (Optiray 320 125ml) 119 ml IV ONCE ONE Stop: 09/09/20 12:54 Last Admin: 09/09/20 12:54 Dose: 119 ml Documented by: [id number] Multivitamins (Multivitamin Tab) 1 tab PO [place] Stop: 10/10/20 08:59 Last Admin: 09/10/20 07:44 Dose: 1 tab Documented by: [id number] Vitamin D (Cholecalciferol 1,000 Units 25 Mcg Tab) 1,000 units PO [place] Stop: 10/10/20 08:59 Last Admin: 09/10/20 07:44 Dose: 1,000 units Documented by: [id number] Medical Decision Making Differential Diagnosis Reactive airway disease, pneumonia, pneumothorax, COPD, CHF, infections, cardiac ischemia, pulmonary embolism, musculoskeletal, gastrointestinal, as well as other pathologies. Medical Records Attestation: I reviewed the patient's medical records. Home Medications Current Medication List: was personally reviewed by me Laboratory Data Attestation: I reviewed the patient's lab results. Result diagrams: 09/10/20 07:12 09/10/20 07:12 Lab Results 09/09/20 09/09/20 09/09/20 Range/Units 12:05 12:05 12:05 WBC 9.45 (4.8-10.8) K/uL RBC 4.53 L (4.7-6.1) M/uL Hgb 14.3 (14.0-18.0) g/dL POC Hgb (14.0-18.0) g/dl Hct 42.6 (42-52) % POC Hct (42-52) % MCV 94.0 (80-100) fL MCH 31.6 (25-34) pg MCHC 33.6 (32-36) g/dL RDW Std Deviation 47.4 H (36.4-46.3) fL RDW Coeff of Caitlyn 13.9 (11.5-14.5) % Plt Count 282 (130-400) K/uL MPV 8.9 (7.4-10.4) fL Immature Gran % (Auto) 0.4 % Neut % (Auto) 85.4 % Lymph % (Auto) 9.9 % [place] % (Auto) 4.1 % Eos % (Auto) 0.0 % Baso % (Auto) 0.2 % Neut # (Auto) 8.06 H (1.4-6.5) K/uL Lymph # (Auto) 0.94 L (1.2-3.4) K/uL [place] # (Auto) 0.39 (0.11-0.59) K/uL Eos # (Auto) 0.00 (0-0.5) K/uL Baso # (Auto) 0.02 (0-0.2) K/uL Immature Gran # (Auto) 0.04 H (0.00-0.02) K/uL PT 10.5 (9.0-12.0) Seconds INR 1.0 (0.9-1.1) APTT 24.1 (21.0-31.0) Seconds PTT Ratio 0.9 POC Sodium (135-144) mmol/L Sodium 139 (136-145) mmol/L POC Potassium (3.3-5.0) mmol/L Potassium 4.7 (3.5-5.1) mmol/L POC Chloride (101-112) mmol/L Chloride 107 (98-107) mmol/L Carbon Dioxide 26 (21-32) mmol/L POC Total CO2 (24-31) mmol/L Anion Gap 6.0 (3-11) POC Anion Gap (16-25) mmol/L POC BUN (7-18) mg/dl BUN 36 H (7-18) mg/dl Creatinine 1.36 (0.6-1.4) mg/dl POC Creatinine (0.6-1.3) mg/dl Est Cr Clr Drug Dosing 54.7 ml/min Est GFR ( Amer) 60.2 Est GFR (Non-Af Amer) 52.0 BUN/Creatinine Ratio 26.3 H (10-20) Glucose 97 (70-99) mg/dl POC Glucose (other) (70-99) mg/dl Calcium 9.2 (8.5-10.1) mg/dl POC Ioniz Calcium Priti (1.12-1.32) mmol/l Total Bilirubin 0.8 (0.2-1) mg/dl AST 39 H (15-37) U/L ALT 85 H (12-78) U/L Alkaline Phosphatase 100 (45-117) U/L Troponin I < 0.015 (0-0.045) ng/ml Total Protein 7.3 (6.4-8.2) gm/dl Albumin 3.2 L (3.4-5.0) gm/dl Globulin 4.1 H (2.5-4.0) gm/dl Albumin/Globulin Ratio 0.8 L (0.9-2) Lipase 208 (73-393) U/L 09/09/20 Range/Units 12:15 WBC (4.8-10.8) K/uL RBC (4.7-6.1) M/uL Hgb (14.0-18.0) g/dL POC Hgb 14.6 (14.0-18.0) g/dl Hct (42-52) % POC Hct 43 (42-52) % MCV (80-100) fL MCH (25-34) pg MCHC (32-36) g/dL RDW Std Deviation (36.4-46.3) fL RDW Coeff of Caitlyn (11.5-14.5) % Plt Count (130-400) K/uL MPV (7.4-10.4) fL Immature Gran % (Auto) % Neut % (Auto) % Lymph % (Auto) % [place] % (Auto) % Eos % (Auto) % Baso % (Auto) % Neut # (Auto) (1.4-6.5) K/uL Lymph # (Auto) (1.2-3.4) K/uL [place] # (Auto) (0.11-0.59) K/uL Eos # (Auto) (0-0.5) K/uL Baso # (Auto) (0-0.2) K/uL Immature Gran # (Auto) (0.00-0.02) K/uL PT (9.0-12.0) Seconds INR (0.9-1.1) APTT (21.0-31.0) Seconds PTT Ratio POC Sodium 137 (135-144) mmol/L Sodium (136-145) mmol/L POC Potassium 4.7 (3.3-5.0) mmol/L Potassium (3.5-5.1) mmol/L POC Chloride 104 (101-112) mmol/L Chloride (98-107) mmol/L Carbon Dioxide (21-32) mmol/L POC Total CO2 25 (24-31) mmol/L Anion Gap (3-11) POC Anion Gap 13.0 L (16-25) mmol/L POC BUN 34 H (7-18) mg/dl BUN (7-18) mg/dl Creatinine (0.6-1.4) mg/dl POC Creatinine 1.3 (0.6-1.3) mg/dl Est Cr Clr Drug Dosing ml/min Est GFR ( Amer) Est GFR (Non-Af Amer) BUN/Creatinine Ratio (10-20) Glucose (70-99) mg/dl POC Glucose (other) 101 H (70-99) mg/dl Calcium (8.5-10.1) mg/dl POC Ioniz Calcium Priti 1.15 (1.12-1.32) mmol/l Total Bilirubin (0.2-1) mg/dl AST (15-37) U/L ALT (12-78) U/L Alkaline Phosphatase (45-117) U/L Troponin I (0-0.045) ng/ml Total Protein (6.4-8.2) gm/dl Albumin (3.4-5.0) gm/dl Globulin (2.5-4.0) gm/dl Albumin/Globulin Ratio (0.9-2) Lipase (73-393) U/L Imaging Data Attestation: I personally reviewed and interpreted this imaging study as fo llows: Radiologist's Impression: [facility], [id number] CT Scan Report Patient: TYLOR PEREZ PAdallison Date: 09/09/20#: [id number]: [address] [place], [place] [address]t ID:[id number]: [facility]: 1950[facility] Zip: [place] [id number]: 69Location: EDSex: MRoom/Bed:Att Phy:Diagnosis: +COVID HX,SOB,PCP WORRIED ABOUT BLOOD CLOTSPri Phy: Cuate Rosen, MDService Date: 09/09/20Fam Phy:Interpreting Phy: Paul Palmer MDAdmit Phy: Ordering Phy: Altaf Shen MD cc: ~ CT ANGIOGRAM OF THE CHEST CLINICAL HISTORY: Shortness of breath. Elevated d-dimer. Possible acute pulmonary embolism. Covid positive patient COMPARISON STUDY: Noncontrast chest CT dated 09/05/2020 TECHNIQUE: Following the IV administration of 119 mL of Optiray-320, CT angiogram of the thorax was performed from the thoracic inlet to the lung bases utilizing the pulmonary embolus protocol. Images are reviewed in the axial, sagittal, and coronal planes. IV contrast was administered without complication. MIP imaging was performed. A dose lowering technique was utilized adhering to the principles of ALARA. CT DOSE: 544.98 mGycm FINDINGS: There is a 4 mm left renal calculus. Mediastinal lymph nodes are the upper limits of normal in size. The ascending thoracic aorta measures 36 mm. There are right upper lobe, right lower lobe, and right middle lobe pulmonary artery filling defects indicative of acute pulmonary embolism. There is mild straightening of the intraventricular septum. Minimal right ventricular strain may be present. No pleural effusions are visualized. There are persistent multifocal groundglass pulmonary opacities consistent with a multifocal pneumonia. IMPRESSION: 1. Right lung pulmonary artery filling defects indicative of acute pulmonary embolism 2. Persistent bilateral pulmonary airspace opacities consistent with a multifocal pneumonia 3. Left-sided nephrolithiasis ACT 112: Negative or not required by law. Electronically signed by: Paul Palmer M.D. 09/09/2020 1:10 PM Dictated: 09/09/20 1304Transcribed: 09/09/20 1310 ECG Data Attestation: I personally reviewed and interpreted this ECG as follows: Indication: + SOB/dyspnea Rate (beats per minute): 70 Rhythm: + normal sinus ECG Intervals/blocks: + Normal QT-c (444) ECG [place]: + Normal ECG ST segments: no Normal ST segments and no ST depression Comparison ECG Date: from (09/03/2020) Change: no significant change MDM Narrative Patient was seen and evaluated as above in room B12. Review was performed of nursing notes and vital signs. I did review pertinent previous visits and pa tient history. After obtaining a thorough history and physical examination the above work up was performed. This 69-year-old male sent in by his primary care physician's office over concern that the patient has an elevation in his D-dimer. He was sent for CAT scan of the chest which was concerning for pulmonary embolism. Due to the findings on the CAT scan in relation to the heart I did feel that the patient should be admitted to the hospital. I did discuss my findings with the hospitalist service who did agree. Patient is in agreement with the treatment plan. While in the department, I personally reevaluated the patient several times and each time the patient was found to be resting comfortably. The patient was educated upon management, educated upon todays findings/results, educated upon importance of follow up from today's visit, educated upon symptoms in which to return, had questions answered prior to discharge, verbalized understanding, and was discharged home in good condition. An order was placed for continuous cardiac monitoring. The monitor shows a rate of 75 with Normal Sinus rhythm. The patient was evaluated during a period of high volume and high acuity while the hospital was at overcapacity during the global COVID-19 pandemic, and that diagnosis was suspected/considered upon their initial presentation. Their evaluation, treatment and testing was consistent with current guidelines for patients who present with complaints or symptoms that may be related to COVID- 19. Impression & Plan History of 2019 novel coronavirus disease (COVID-19), Multifocal pneumonia, Pulmonary embolism Discharge Plan Visit Data Chief Complaint: Shortness of Breath/Dyspnea Stated Complaint: +COVID HX,SOB,PCP WORRIED ABOUT BLOOD CLOTS ED Provider: Altaf Shen Discharge Problem: History of 2019 novel coronavirus disease (COVID-19), Multifocal pneumonia, Pulmonary embolism Patient Disposition: Admitted As Inpatient Discharge Instructions Interventions: ED Discharge Assessment Last Done: 09/09/20 20:09 Discharge Problem: Pulmonary embolism Qualifiers: Pulmonary embolism type: unspecified Chronicity: unspecified Acute cor pulmonale presence: unspecified Qualified Code(s): I26.99 - Other pulmonary embolism without acute cor pulmonale
[2020-09-09] MEDS ORDERED: APIXABAN 5 MG TABLET PO STA (13:32)
--- NOTE | 2020-09-09 13:42 | History & Physical Report ---
Date of Service September 09, 2020 Assessment & Plan (1) Pulmonary embolism: Apixaban 10 mg p.o. twice daily for 7 days then 5 mg p.o. twice daily. TTE to assess for right heart strain suggested on CT (2) History of 2019 novel coronavirus disease (COVID-19): Single room. Outside timeline for need for negative pressure room or airborne precautions per hospital protocol. Admission and Anticipated Discharge Date Admission Date: 09/09/2020 Anticipated date of discharge: 09/10/20 History of Present Illness Chief Complaint: Elevated D-dimer Primary Care Provider: Cuate Rosen MD Joesph Blackwood is a 69-year-old male with recent history of COVID-19 who presents from his PCP office due to an elevated (and increasing D-dimer). The patient reports no significant worsening of his symptoms since being discharged from hospital with COVID-19. He has been walking a mile on a treadmill and maintaining his O2 saturations. However he does report hitting a plateau of improvement over the last week. Due to this his PCP started him on prednisone 10 mg p.o. daily 3 days ago however he reports no significant improvement with this. Therefore today he underwent lab work which was concerning for an increasing d-dimer therefore was sent to the ER for further evaluation. No chest pain, diarrhea, abdominal pain. He reports his appetite is normal. His symptoms for COVID-19 pneumonia started approximately August 14. He was diagnosed on August 21 in the emergency room. Subsequently was hospitalized overnight from - mainly due to generalized fatigue and inadequate oral intake rather than hypoxia. He was treated with a full 10-day course of dexamethasone. In the ER subsequent CT for PE was positive with pulmonary artery filling defects on the right lung. Slight concern for right ventricular heart strain on CT (EKG and troponin unremarkable) therefore was referred to medicine for admission and ongoing management for pulmonary embolism. Allergies Allergy/AdvReac Type Severity Reaction Status Date / Time No Known Allergies Allergy Verified 09/09/20 11:38 Home Medications Medication Instructions Recorded Confirmed Type multivitamin 1 tab PO QAM #0 tab 05/31/13 09/09/20 History ascorbic acid (vitamin C) [Vitamin 500 mg PO QAM 08/21/20 09/09/20 History C] atorvastatin 10 mg PO HS 08/21/20 09/09/20 History cholecalciferol (vitamin D3) 25 mcg PO QAM 08/21/20 09/09/20 History [Vitamin D3] zinc sulfate 220 mg PO QAM 08/21/20 09/09/20 History acetaminophen [Tylenol] 325 mg PO QID PRN 08/25/20 09/09/20 History aspirin 81 mg PO QAM 09/09/20 09/09/20 History lysine 1,000 mg PO QAM 09/09/20 09/09/20 History prednisone 20 mg PO QAM 09/09/20 09/09/20 History Past Med/Surg History Medical History COVID-19 Positive test 08/21/2020 Fatigue SOB (shortness of breath) Surgical History No significant past surgical history Family History Father Cancer Social History Smoking Status: Never smoker Second Hand Exposure: No; Hx Alcohol Use: No Hx Substance Use: No Preferred Language: Armenian Communication Ability: Effective Food Products Tester Required: No Beliefs That Will Affect Care: None Current Living Situation: Spouse Feels Safe at Home: Yes Assistive Devices: Glasses Review of Systems Review of Systems: All systems reviewed & are unremarkable except as noted in HPI & below Physical Exam Constitutional: well developed and well nourished; no acute distress Eyes: + anicteric sclerae; normal pupil size ENMT: external ear and nose normal, oropharynx normal Neck: trachea midline Respiratory: normal respiratory effort, lungs clear to auscultation Cardiovascular: RRR, no murmur, no edema Gastrointestinal (Abdomen): normal bowel sounds, soft, nontender, no hepatosplenomegaly Musculoskeletal: no cyanosis or clubbing, extremities motor strength 5/5 Skin: no rashes, warm and dry Neurologic: moves all extremities and awake; not confused Psychiatric: A+Ox3, euthymic affect Results & Data Results & Data ([facility]) Vital Signs (Past 12 Hours) Vital Signs Temp Pulse Resp BP Pulse Ox 09/09/20 12:30 65 18 132/78 97 09/09/20 12:22 70 19 122/78 96 09/09/20 12:05 97 09/09/20 11:47 74 19 97 09/09/20 11:12 36.3 C L 74 19 134/[address] ANGIOGRAM OF THE CHEST IMPRESSION: 1. Right lung pulmonary artery filling defects indicative of acute pulmonary embolism 2. Persistent bilateral pulmonary airspace opacities consistent with a multifocal pneumonia 3. Left-sided nephrolithiasis Medications Administered ER medications given: Albuterol 2 puff inhaler ECG Indication: SOB/dyspnea Rate (beats per minute): 70 Rhythm: normal sinus Findings: no acute ischemic change Comparison ECG Date: from (September 03, 2020) Change: no significant change Code Status & VTE Plan Code Status Full VTE Prophylaxis Plan VTE Prophylaxis will be ordered: Yes PG Care Time/CCT Total # of Minutes Spent Total Time Spent with Patient: Total time spent is greater than 50% in coordination of care (as documented) at patient's floor/unit and/or counseling patient: Coding Level of Care Code 21500 OBS Care - Level 2 Diagnoses Pulmonary embolism I26.99 History of 2019 novel coronavirus disease (COVID-19) Z86.19
[2020-09-09] MEDS ORDERED: ACETAMINOPHEN 325 MG TAB PO PRN ×2 (14:46)
--- NOTE | 2020-09-09 15:40 | Electrocardiogram Report ---
Test Reason : Blood Pressure : / mmHG Vent. Rate : 070 BPM Atrial Rate : 070 BPM P-R Int : 202 ms QRS Dur : 088 ms QT Int : 412 ms P-R-T Axes : 026 075 044 degrees QTc Int : 444 ms Normal sinus rhythm Normal ECG When compared with ECG of 03-SEP-2020 11:57, No significant change was found Confirmed by Gilson Gutierrez ([id number]) on 09/09/2020 3:39:32 PM Referred By: REFERRED SELF Confirmed By:Gilson Gutierrez
[2020-09-09] MEDS: APIXABAN 5 MG TABLET PO SCH (20:32)
[2020-09-09] MEDS ORDERED: ATORVASTATIN 10 MG TAB PO SCH (21:00)
[2020-09-10] MEDS: APIXABAN 5 MG TABLET PO SCH (07:43)
[2020-09-10 07:45] LABS: Hematocrit (blood only) 43.2 % (42-52); Hemoglobin 14.3 g/dL (14.0-18.0); Mean Corpuscular Hemoglobin 30.9 pg (25-34); Mean Corpuscular Hgb Conc 33.1 g/dL (32-36); Mean Corpuscular Volume 93.3 fL (80-100); Mean Platelet Volume 8.9 fL (7.4-10.4); Platelet Count 277 K/uL (130-400); RDW Standard Deviation 47.4 fL (36.4-46.3); Red Blood Count 4.63 M/uL (4.7-6.1); White Blood Count 6.78 K/uL (4.8-10.8)
[2020-09-10 08:17] LABS: BUN Creatinine Ratio 18.5 (10-20); Calcium 9.1 mg/dl (8.5-10.1); Creatinine Clr Calc Pharmacy 57.2 ml/min; Est GFR (African American) 63.6; Est GFR (Non-African American) 54.9
[2020-09-10 08:38] LABS: Albumin Globulin Ratio 0.8 (0.9-2); Bilirubin,Total 1.4 mg/dl (0.2-1); Globulin 3.7 gm/dl (2.5-4.0); Total Protein 6.7 gm/dl (6.4-8.2)
[2020-09-10] MEDS ORDERED: ASCORBIC ACID 500 MG TAB PO SCH (09:00)
[2020-09-10] MEDS ORDERED: MULTIVITAMIN TAB PO SCH (09:00)
[2020-09-10] MEDS ORDERED: ASPIRIN 81 MG ECTAB PO SCH (09:00)
[2020-09-10] MEDS ORDERED: CHOLECALCIFEROL 1,000 UNITS 25 MCG TAB PO SCH (09:00)
--- NOTE | 2020-09-10 15:00 | XCELERA ---
[id number]
--- NOTE | 2020-09-10 15:17 | Discharge Summary ---
Date of Service September 10, 2020 Admission HPI Per Admitting Provider Joesph Blackwood is a 69-year-old male with recent history of COVID-19 who presents from his PCP office due to an elevated (and increasing D-dimer). The patient reports no significant worsening of his symptoms since being discharged from hospital with COVID-19. He has been walking a mile on a treadmill and maintaining his O2 saturations. However he does report hitting a plateau of improvement over the last week. Due to this his PCP started him on prednisone 10 mg p.o. daily 3 days ago however he reports no significant improvement with this. Therefore today he underwent lab work which was concerning for an inc reasing d-dimer therefore was sent to the ER for further evaluation. No chest pain, diarrhea, abdominal pain. He reports his appetite is normal. His symptoms for COVID-19 pneumonia started approximately August 14. He was diagnosed on August 21 in the emergency room. Subsequently was hospitalized overnight from - mainly due to generalized fatigue and inadequate oral intake rather than hypoxia. He was treated with a full 10-day course of dexamethasone. In the ER subsequent CT for PE was positive with pulmonary artery filling defects on the right lung. Slight concern for right ventricular heart strain on CT (EKG and troponin unremarkable) therefore was referred to medicine for admission and ongoing management for pulmonary embolism. Principal Diagnosis Pt states he feels fine. No SOB or chest pain. Pt denies fever, abd pain, n/v/c/d, LE pain or swelling. Discharge Exam Constitutional WD/WN, vitals as above Eyes normal visual smith by confrontation and + anicteric sclerae Neck normal visual inspection and trachea midline Respiratory normal respiratory effort; no respiratory distress Auscultation: + crackles (scant); no wheezes Cardiovascular Rate/Rhythm: regular rate and regular rhythm Gastrointestinal (Abdomen) Inspection/Auscultation: abdomen not distended Percussion/Palpation: abdomen soft; abdomen nontender Musculoskeletal Head/Neck/Chest: normocephalic and head atraumatic Skin no rashes, warm and dry Neurologic awake; not confused Speech / Cognition: normal speech Psychiatric A+Ox3, euthymic affect Discharge Data Allergies Allergy/AdvReac Type Severity Reaction Status Date / Time No Known Allergies Allergy Verified 09/09/20 11:38 Consultations 09/09/20 13:25 ED Decision to Admit Stat Ordered Studies 09/09/20 11:58 CT angio chest PE protocol Stat Hospital Course (1) Pulmonary embolism: Apixaban 10 mg p.o. twice daily for 7 days then 5 mg p.o. twice daily. ECHO with EF 60-65% and mild RV dilation Pt was started on aspirin 81mg with COVID dx Advised he can d/c this with eliquis use moving forward Pt had many questions about supplement and exercise moving forward. Discussed in detail. (2) History of 2019 novel coronavirus disease (COVID-19): Single room. Outside timeline for need for negative pressure room or airborne precautions per hospital protocol. Total Time Total Time Spent Total Time Spent (In Minutes): >30 Total Time Includes: Examination of the Patient, Discharge Planning, Medication Reconciliation, Communication With Other Providers and Other Discharge Plan Discharge Items Patient Disposition: Home - Self-Care Reason For Visit: ACUTE PULMONARY EMBOLISM Discharge Diagnosis: Pulmonary embolism Activity: Resume your previous activity Non-emergency contact: Primary Care Provider Call non-emergency contact if: you have any medication questions and your symptoms worsen Follow-up/Referrals: Cuate Rosen MD [Primary Care Provider] - 09/11/20 11:00 am Diet: Regular Addtl Attending Provider Instructions: You should be seen by your PCP in the next week. Return to the ED if you have worsening trouble breathing or chest pain. Pending Studies at Discharge: No Stand-Alone Forms: My Smish, Smoking Cessation Medications and DC Order Prescriptions: New Eliquis 5 mg tablet 5 mg PO BID Qty: 60 RF: 0 Continued multivitamin Tablet 1 tab PO QAM Qty: 0 RF: 0 atorvastatin 10 mg tablet 10 mg PO HS RF: 0 zinc sulfate 220 mg Tablet 220 mg PO QAM RF: 0 ascorbic acid (vitamin C) [Vitamin C] 500 mg Tablet 500 mg PO QAM RF: 0 cholecalciferol (vitamin D3) [Vitamin D3] 25 mcg (1,000 unit) Tablet 25 mcg PO QAM RF: 0 acetaminophen [Tylenol] 325 mg Tablet 325 mg PO QID PRN (Reason: Pain) RF: 0 lysine 500 mg Tablet 1,000 mg PO QAM RF: 0 Discontinued aspirin 81 mg Tablet,Delayed Release (Dr/Ec) 81 mg PO QAM RF: 0 prednisone 10 mg tablet 20 mg PO QAM RF: 0 Discharge Orders: Discharge Order (Routine); Ordered 09/10/20 Ordered By: Tabitha Chacon/Other Patient Handouts: Pulmonary Embolism Admission Data Admit Date/Time: 09/09/20 13:39 Attending Provider: Tabitha Aceves Admit Provider: Leno Roth Primary Care Provider: Cuate Rosen Other Providers: Leno Roth Other Interventions: Discharge Summary Assessment (RN) Last Done: 09/10/20 15:27 Coding Level of Care Code D/C Day Management >30 mins Diagnoses Pulmonary embolism I26.99 History of 2019 novel coronavirus disease (COVID-19) Z86.19
== END 2020-09-10 15:51 | disposition home or self-care (01) ==
LOC: EDINP 11:08 → ED 11:08 → EDINP 13:39 → SUATTDRO 13:39 → 2W 18:41